=== PATIENT | male | born 2000 | race Hispanic/Latino ===

== ENCOUNTER 2023-05-09 00:27 | Emergency (ER) | payer SELFPAY ==
--- OUTSIDE RECORDS SUMMARY | 2023-05-09 00:32 | XMS REPORT | Continuity of Care Document ---
:2000 Author Organization [facility] t Address [address] [facility]. [address] [place] [address] Care Team Providers Name Role Phone Unavailable Unavailable Unavailable Problems This patient has no known problems. Allergies, Adverse Reactions, Alerts This patient has no known allergies or adverse reactions. Medications This patient has no known medications. Procedures This patient has no known procedures. Results Test Description Test Time Test Comments Results Result Comments Source GONORRHEA, NAAT, URINE 2021-10-07 19:09:02 Test Item Value Reference Range Interpretation Comme nts GONORRHEA, NAAT NEGATIVE NEGATIVE IMPORTA NT NOTICE: SEE ANNOUNCEMENT AT (test code = [email or web address] Note: 78988) Assay methodolo gy is nucleic acid amplification by transcriptio n mediated amplification (TMA) utilizing the A ptima Combo 2 Assay. CHLAMYDIA, NAAT, [id number] 19:09:02 Test Item Value Reference Range Interpretation Comments CHLAMYDIA, NAAT NEGATIVE NEGATIVE IMPORTA NT NOTICE: SEE (test code = [place] [address]) [email or web address] Note: Assay methodology is nucleic acid amplification b y price analyst m ediated amplification ( TMA) utilizing the A ptima Combo 2 Assay. UNLESS OTHERWISE INDICATED, ALL TESTING PERFORMED [facility] PATHOLOGY [facility] [address] [place] [address] LACEY BARR DIRECTOR: Marychuy ROGERSIA NUMBER [id number] CAP ACCREDITATION N O. [id number] HIV 1/2 4TH GEN, RFLX [id number] 04:41:54 Test Item Value Reference Range Interpretation Comments HIV 1/2 4TH GEN, RFLX CONF (test NON-REACTIVE NON-REACTIVE code = 3514) HEPATITIS PANEL, [id number] 04:41:54 Test Item Value Reference Range Interpretation Comments HEPATITIS A IgM (test NON-REACTIVE NON-REACTIVE code = 77208) HEPATITIS B CORE IgM NON-REACTIVE NON-REACTIVE (test code = 4644) HEPATITIS B SURF AG NON-REACTIVE NON-REACTIVE (test code = 2739) HEPATITIS C ANTIBODY NON-REACTIVE NON-REACTIVE (test code = 4675) INTERPRETATION (NOTE) Hepatitis A HEPATITIS A: (test code sero logy shows no = 2552) evidence of acu te hepatitis A. INTERPRETATION (NOTE) Hepatitis B HEPATITIS B: (test code sero logy shows no = 20777) evidence of acu te hepatitis B and no indication of exposure to hepatitis B vir us in the previous mai eight months. INTERPRETATION (NOTE) Hepatitis C HEPATITIS C: (test code sero logy shows no = 03676) evidence of exposure to hepatitisC viru s at this time. I t can take up to 12 months after exposure tothe hepatitis C vir us for antibodies to become detectab le in the blood in certain patient s.
--- NOTE | 2023-05-09 00:42 | EDPHYS ---
Physician Documentation [facility] Name: Jose Glez Age: 22 yrs Sex: Male : 2000 Arrival Date: 05/09/2023 Time: 00:27 Bed Treatment Private MD: ED Physician Sudhakar Gresham HPI: 05/09 00:34 This 22 yrs old Male presents to ER via Unassigned with complaints of Sore sp4 Throat, Fever, Nausea. 01:00 22-year-old male presents with a cute onset of sore throat starting 5 days sp4 ago. Patient states there is bilateral throat pain pain on swallowing associated with subjective fever chills and nausea. Ibuprofen temporarily relieves sore throat. No known drug allergies,. Historical: - Allergies: 00:47 No Known Allergies; kb3 - Home Meds: 00:47 None [Active]; kb3 - PMHx: 00:47 None; kb3 - PSHx: 00:47 None; kb3 - Immunization history:: Adult Immunizations up to date, Last tetanus immunization: < 10 years ago. - Social history:: Smoking status: Patient denies any tobacco usage or history of. Patient uses alcohol, occasionally. Patient/guardian denies using street drugs. - Family history:: not pertinent. ROS: 01:00 Constitutional: Negative for and weight loss, positive subjective fever and chills sp4 Eyes: Negative for injury, pain, redness, and discharge, ENT: Negative for injury, positive sore throat, positive pain on swallowing 01:00 All other systems are negative, Exam: 01:00 Constitutional: This is a well developed, well nourished patient who is awake, alert, sp4 and in no acute distress. Head/Face: Normocephalic, atraumatic. Eyes: Pupils equal round and reactive to light, extra-ocular motions intact. Lids and lashes normal. Conjunctiva and sclera are not injected. Cornea within normal limits. Periorbital areas with no swelling, redness, or edema. ENT: Nares patent. No nasal discharge, no septal abnormalities noted. Tympanic membranes are normal and external auditory canals are clear. Posterior pharyngitis posterior pharyngeal erythema bilateral tonsillar exudates. Neck: Trachea midline, no thyromegaly or masses palpated, and no cervical lymphadenopathy. Supple, full range of motion without nuchal rigidity, or vertebral point tenderness. Chest/axilla: Normal chest wall appearance and motion. Nontender with no deformity. No lesions are appreciated. Cardiovascular: Regular rate and rhythm with a normal S1 and S2. No gallops, murmurs, or rubs. Normal PMI, no JVD. No pulse deficits. Respiratory: Lungs have equal breath sounds bilaterally, clear to auscultation and percussion. No rales, rhonchi or wheezes noted. No increased work of breathing, no retractions or nasal flaring. Abdomen/GI: Soft, non-tender, with normal bowel sounds. No distension or tympany. No guarding or rebound. No evidence of tenderness throughout. Back: No spinal tenderness. No costovertebral tenderness. Skin: Warm, dry with normal turgor. Normal color with no rashes, no lesions, and no evidence of cellulitis. MS/ Extremity: Pulses equal, no cyanosis. Neurovascular intact. Full, normal range of motion. Neuro: Awake and alert, GCS 15, oriented to person, place, time, and situation. Cranial nerves II-XII grossly intact. Motor strength 5/5 in all extremities. Sensory grossly intact. Psych: Awake, alert, with orientation to person, place and time. Behavior, mood, and affect are within normal limits Vital Signs: 00:45 BP 133 / 82; Pulse 107; Resp 20; Temp 97.9; Pulse Ox 100% ; Weight 74.84 kg; Height 5 kb3 ft. 6 in. ; Pain 8/10; 00:45 Body Mass Index 26.63 (74.84 kg, 167.64 cm) kb3 00:45 Pain Scale: Adult kb3 MDM: 00:42 Patient medically screened. sp4 01:00 Differential diagnosis: apthous ulcer, bronchitis, cocksackie virus, echovirus sp4 infection, malika-aleman virus, gingivostomatitis, influenza. Data reviewed: vital signs, nurses notes, old medical records. Consideration of Admission/Observation Escalation of care including admission/observation considered. ED course: Patient has exudative tonsillitis by exam. Will treat with Toradol, and IM Rocephin. ED course: Stable for discharge home with p.o. cephalexin for 10 days.. Administered Medications: 01:07 Drug: Rocephin (cefTRIAXone) IM 1 grams IM once Route: IM; Site: left ventrogluteal; kb3 01:07 Follow up: Response: No adverse reaction kb3 01:07 Drug: Ketorolac IM 60 mg IM once Route: IM; Site: right ventrogluteal; kb3 01:07 Follow up: Response: No adverse reaction kb3 01:07 Drug: Promethazine PO 25 mg PO once Route: PO; kb3 01:07 Follow up: Response: No adverse reaction kb3 01:07 Drug: Acetaminophen-Codeine PO (300 mg-30 mg) 2 tabs PO once; RASS on ADMIN: Combtv4, kb3 Very Agttd3, Agttd2, Rstlss1, AlertClm0, Drwsy-1, Lt Sdtn-2, Mod Sdtn-3, Dp Sdtn-4, UnArsble-5 Route: PO; 01:07 Follow up: Response: No adverse reaction kb3 Disposition Summary: 05/09/23 00:42 Discharge Ordered Problem: new sp4 Symptoms: have improved sp4 Condition: Stable sp4 Diagnosis - Acute tonsillitis, unspecified sp4 - Acute exudative tonsillitis sp4 Followup: sp4 - With: Private Physician - When: 7 - 10 days - Reason: Recheck today's complaints Discharge Instructions: - Discharge Summary Sheet sp4 - Tonsillitis sp4 Forms: - Patient Portal Instructions sp4 Prescriptions: - naproxen 500 mg Oral tablet - take 1 tablet by ORAL route every 12 hours as needed for pain; 30 tablet; sp4 Refills: 0, Product Selection Permitted - Cephalexin 500 mg Oral Capsule - take 1 capsule by ORAL route every 12 hours for 10 days; 20 capsule; Refills: sp4 0, Product Selection Permitted Signatures: Caterina Bautista RN RN kb3 Sudhakar Gresham MD MD sp4 Corrections: (The following items were deleted from the chart) 00:47 00:47 Allergies: Unable to obtain; kb3 kb3
[2023-05-09] MEDS ORDERED: PROMETHAZINE 25 MG TABLET ONE (01:05)
[2023-05-09] MEDS ORDERED: LIDOCAINE 1% MPF 2 ML AMPULE ONE (01:06)
[2023-05-09] MEDS ORDERED: CEFTRIAXONE 1000 MG/VIAL ONE (01:06)
[2023-05-09] MEDS ORDERED: KETOROLAC 30 MG/ML INJ ONE (01:06)
[2023-05-09] MEDS ORDERED: CODEINE 30MG/APAP 300MG TAB ONE (01:06)
--- NOTE | 2023-05-09 01:09 | ER ---
Nurse's Notes [facility] Name: Jose Glez Age: 22 yrs Sex: Male : 2000 Arrival Date: 05/09/2023 Time: 00:27 Bed Treatment Private MD: Diagnosis: Acute tonsillitis, unspecified;Acute exudative tonsillitis Presentation: 05/09 00:45 Chief complaint: Patient states: sore throat and fever since . Tonsils are kb3 edematous with patchy exudate. Coronavirus screen: Vaccine status: Patient reports being unvaccinated. Client denies travel out of the [place] in the last 14 days. Ebola Screen: Patient negative for fever greater than or equal to 101.5 degrees Fahrenheit, and additional compatible Ebola Virus Disease symptoms Patient denies exposure to infectious person. Patient denies travel to an Ebola-affected area in the 21 days before illness onset. Initial Sepsis Screen: Does the patient meet any 2 criteria? No. Patient's initial sepsis screen is negative. Does the patient have a suspected source of infection? No. Patient's initial sepsis screen is negative. Risk Assessment: Do you want to hurt yourself or someone else? Patient reports no desire to harm self or others. Onset of symptoms was May 05, 2023. 00:45 Method Of Arrival: Ambulatory kb3 00:45 Acuity: LISA 4 kb3 Triage Assessment: 00:47 General: Appears in no apparent distress. uncomfortable, Behavior is calm, cooperative. kb3 Pain: Complains of pain in uvula, left aspect of posterior pharynx and right aspect of posterior pharynx Pain does not radiate. Pain currently is 8 out of 10 on a pain scale. Quality of pain is described as sharp, stinging. EENT: Throat is reddened has patchy exudate has enlarged tonsils bilaterally. Historical: - Allergies: 00:47 No Known Allergies; kb3 - Home Meds: 00:47 None [Active]; kb3 - PMHx: 00:47 None; kb3 - PSHx: 00:47 None; kb3 - Immunization history:: Adult Immunizations up to date, Last tetanus immunization: < 10 years ago. - Social history:: Smoking status: Patient denies any tobacco usage or history of. Patient uses alcohol, occasionally. Patient/guardian denies using street drugs. - Family history:: not pertinent. Screenin:48 [facility] ED Fall Risk Assessment (Adult) History of falling in the last 3 months, kb3 including since admission No falls in past 3 months (0 pts) Confusion or Disorientation No (0 pts) Intoxicated or Sedated No (0 pts) Impaired Gait No (0 pts) Mobility Assist Device Used No (0 pt) Altered Elimination No (0 pt) Score/Fall Risk Level 0 - 2 = Low Risk Oriented to surroundings, Maintained a safe environment, Educated pt \T\ family on fall prevention, incl call for assistance when getting out of bed. Abuse screen: Denies threats or abuse. Denies injuries from another. Nutritional screening: No deficits noted. Tuberculosis screening: No symptoms or risk factors identified. Assessment: 00:48 General: See triage notes. Respiratory: Airway is patent Respiratory effort is even, kb3 unlabored, Breath sounds are clear. Vital Signs: 00:45 BP 133 / 82; Pulse 107; Resp 20; Temp 97.9; Pulse Ox 100% ; Weight 74.84 kg; Height 5 kb3 ft. 6 in. ; Pain 8/10; 00:45 Body Mass Index 26.63 (74.84 kg, 167.64 cm) kb3 00:45 Pain Scale: Adult kb3 ED Course: 00:30 Patient arrived in ED. es 00:34 Suraj Wallace PA is PHCP. cp 00:34 Sudhakar Gresham MD is Attending Physician. cp 00:47 Triage completed. kb3 00:47 Arm band placed on right wrist. kb3 00:48 Patient has correct armband on for positive identification. Bed in low position. Call kb3 light in reach. Provided Education on: Plan of care. 00:48 No provider procedures requiring assistance completed. Patient did not have IV access kb3 during this emergency room visit. Administered Medications: 01:07 Drug: Rocephin (cefTRIAXone) IM 1 grams IM once Route: IM; Site: left ventrogluteal; kb3 01:07 Follow up: Response: No adverse reaction kb3 01:07 Drug: Ketorolac IM 60 mg IM once Route: IM; Site: right ventrogluteal; kb3 01:07 Follow up: Response: No adverse reaction kb3 01:07 Drug: Promethazine PO 25 mg PO once Route: PO; kb3 01:07 Follow up: Response: No adverse reaction kb3 01:07 Drug: Acetaminophen-Codeine PO (300 mg-30 mg) 2 tabs PO once; RASS on ADMIN: Combtv4, kb3 Very Agttd3, Agttd2, Rstlss1, AlertClm0, Drwsy-1, Lt Sdtn-2, Mod Sdtn-3, Dp Sdtn-4, UnArsble-5 Route: PO; 01:07 Follow up: Response: No adverse reaction kb3 Medication: 00:48 VIS not applicable for this client. kb3 Outcome: 00:42 Discharge ordered by . sp4 01:08 Discharged to home ambulatory, kb3 01:08 Condition: stable 01:08 Discharge instructions given to patient, Instructed on discharge instructions, follow up and referral plans. medication usage, Demonstrated understanding of instructions, follow-up care, medications, Prescriptions given X 2, 01:08 Patient left the ED. kb3 Signatures: Selma Juan Corey, PA PA cp Bradberry, Kelly, TRENT RN kb3 Sudhakar Gresham MD MD sp4 Corrections: (The following items were deleted from the chart) 00:47 00:47 Allergies: Unable to obtain; kb3 kb3
[2023-05-09 01:57] VITALS: BP 133/82; TEMP 97.9; O2SAT 100
== END 2023-05-09 01:08 | disposition home or self-care (01) ==
LOC: ER 00:27
DX: J03.90 Acute tonsillitis, unspecified (principal)
CPT/HCPCS: 96372; 99284; J0696; Q0169

== ENCOUNTER 2023-05-11 00:25 | Emergency (ER) | payer SELFPAY ==
--- NOTE | 2023-05-11 00:59 | ER ---
Nurse's Notes [facility] Name: Jose Glez Age: 22 yrs Sex: Male : 2000 Arrival Date: 05/11/2023 Time: 00:25 Bed 6 Private MD: Diagnosis: Acute tonsillitis, unspecified;Unspecified sexually transmitted disease Presentation: 05/11 00:29 Chief complaint: Patient states: sore throat pain of 6 with swelling,onset 6 days, pf1 worse today, not able to swallow salvia or eat. Also C/O penis is swollen,onset Tuesday AM. Patient stated had irritation to penis for 3 days prior to the penis swelling. Patient stated was seen here on 05/09, diagnosed with Tonsillitis, was prescribed Keflex and Naproxen. 00:29 Coronavirus screen: Vaccine status: Patient reports being unvaccinated. Client denies pf1 travel out of the [place] in the last 14 days. Client presents with at least one sign or symptom that may indicate coronavirus-19. Ebola Screen: Patient negative for fever greater than or equal to 101.5 degrees Fahrenheit, and additional compatible Ebola Virus Disease symptoms. Initial Sepsis Screen: Does the patient meet any 2 criteria? HR > 90 bpm. No. Patient's initial sepsis screen is negative. Does the patient have a suspected source of infection? Yes: Other: sore throat. Risk Assessment: Do you want to hurt yourself or someone else? Patient reports no desire to harm self or others. 00:29 Method Of Arrival: Ambulatory pf1 00:29 Acuity: LISA 4 pf1 01:06 Onset of symptoms was May 11, 2023. rv Historical: - Allergies: 00:49 No Known Allergies; pf1 - PMHx: 00:49 None; pf1 - PSHx: 00:49 None; pf1 - Immunization history:: Adult Immunizations up to date, Client reports having NOT received the Covid vaccine. Last tetanus immunization: < 10 years ago Flu vaccine is not up to date. - Social history:: Smoking status: Patient denies any tobacco usage or history of. Patient uses alcohol, occasionally. Patient/guardian denies using street drugs. Screenin:05 [facility] ED Fall Risk Assessment (Adult) History of falling in the last 3 months, rv including since admission No falls in past 3 months (0 pts) Score/Fall Risk Level 0 - 2 = Low Risk Oriented to surroundings, Maintained a safe environment, Educated pt \T\ family on fall prevention, incl call for assistance when getting out of bed, Assessed \T\ reinforced patient's understanding of fall precautions, Provided non-skid footwear, Hourly rounding (assess needs \T\ fall precautionary measures) done, Used ambulatory aids as needed (educated on \T\ assisted with), Used gait belt as appropriate. Abuse screen: Denies threats or abuse. Denies injuries from another. Nutritional screening: No deficits noted. Tuberculosis screening: No symptoms or risk factors identified. Assessment: 01:04 General: Appears comfortable, Behavior is calm, cooperative. Pain: Complains of pain in rv head of penis. Neuro: Level of Consciousness is awake, alert, obeys commands, Oriented to person, place, time, situation. Cardiovascular: Capillary refill < 3 seconds Patient's skin is warm and dry. Respiratory: Airway is patent. : Reports pain. Derm: Skin is intact. Vital Signs: 00:29 BP 143 / 80; Pulse 125; Resp 18; Temp 98.6; Pulse Ox 100% on R/A; Weight 74.84 kg; pf1 Height 5 ft. 5 in. ; Pain 6/10; 00:29 Body Mass Index 27.46 (74.84 kg, 165.1 cm) pf1 00:29 Pain Scale: Adult pf1 [place] Coma Score: 01:05 Eye Response: spontaneous(4). Motor Response: obeys commands(6). Verbal Response: rv oriented(5). Total: 15. ED Course: 00:28 Patient arrived in ED. mr 00:31 Suraj Hess MD is Attending Physician. keyanna 00:33 Armani Mitchell, TRENT is Primary Nurse. bp 00:49 Triage completed. pf1 00:57 Chip Wagner MD is Referral Physician. keyanna 01:05 Patient has correct armband on for positive identification. Provided Education on: std. rv 01:05 Arm band placed on right wrist. rv 01:05 No provider procedures requiring assistance completed. Patient did not have IV access rv during this emergency room visit. Administered Medications: 01:02 Drug: penicillin G Benzathine IM 1.2 million units IM once Route: IM; Site: right rv gluteus; 01:30 Follow up: Response: No adverse reaction rv 01:03 Drug: Doxycycline PO 200 mg PO once Route: PO; rv 01:30 Follow up: Response: No adverse reaction rv 01:03 Drug: AZITHromycin PO 1 grams PO once Route: PO; rv 01:30 Follow up: Response: No adverse reaction rv Medication: 01:05 VIS not applicable for this client. rv Outcome: 00:58 Discharge ordered by . keyanna 01:30 Discharged to home ambulatory, with family, rv 01:30 Condition: good 01:30 Discharge instructions given to patient, Instructed on discharge instructions, follow up and referral plans. medication usage, Demonstrated understanding of instructions, follow-up care, medications, Prescriptions given X 1, 01:31 Patient left the ED. rv Signatures: Suraj Hess MD MD cha Rivera, Mary, Oni Bunn mr Armani Mitchell, RN RN bp Vamsi Ramirez RN RN rv Deja Law RN RN pf1 Corrections: (The following items were deleted from the chart) 00:49 00:39 Chief complaint: Patient states: sore throat pain of 6 with swelling,onset 6 pf1 days, worse today, not able to swallow salvia or eat. Also C/O penis is swollen,onset Tuesday AM. Patient stated pf1
--- NOTE | 2023-05-11 00:59 | EDPHYS ---
Physician Documentation [facility] Name: Jose Glez Age: 22 yrs Sex: Male : 2000 Arrival Date: 05/11/2023 Time: 00:25 Bed 6 Private MD: ED Suraj Ashraf HPI: 05/11 00:47 This 22 yrs old Male presents to ER via Unassigned with complaints of Penile keyanna Problem. 00:47 The patient presents with swelling, tenderness, that is moderate, of the head of penis keyanna and shaft of penis. Historical: - Allergies: 00:49 No Known Allergies; pf1 - PMHx: 00:49 None; pf1 - PSHx: 00:49 None; pf1 - Immunization history:: Adult Immunizations up to date, Client reports having NOT received the Covid vaccine. Last tetanus immunization: < 10 years ago Flu vaccine is not up to date. - Social history:: Smoking status: Patient denies any tobacco usage or history of. Patient uses alcohol, occasionally. Patient/guardian denies using street drugs. ROS: 00:51 Constitutional: Negative for fever, chills, and weight loss, Eyes: Negative for injury, keyanna pain, redness, and discharge, Neck: Negative for injury, pain, and swelling, Cardiovascular: Negative for chest pain, palpitations, and edema, Respiratory: Negative for shortness of breath, cough, wheezing, and pleuritic chest pain, Abdomen/GI: Negative for abdominal pain, nausea, vomiting, diarrhea, and constipation, Back: Negative for injury and pain, MS/Extremity: Negative for injury and deformity, Skin: Negative for injury, rash, and discoloration, Neuro: Negative for headache, weakness, numbness, tingling, and seizure, Psych: Negative for depression, anxiety, suicide ideation, homicidal ideation, and hallucinations, Allergy/Immunology: Negative for hives, rash, and allergies, Endocrine: Negative for neck swelling, polydipsia, polyuria, polyphagia, and marked weight changes, 00:51 ENT: Positive for sinus congestion, sore throat, 00:51 : Positive for penile pain, of the head of penis and shaft of penis, Exam: 00:51 Constitutional: This is a well developed, well nourished patient who is awake, alert, keyanna and in no acute distress. Head/Face: Normocephalic, atraumatic. Eyes: Pupils equal round and reactive to light, extra-ocular motions intact. Lids and lashes normal. Conjunctiva and sclera are non-icteric and not injected. Cornea within normal limits. Periorbital areas with no swelling, redness, or edema. Neck: Trachea midline, no thyromegaly or masses palpated, and no cervical lymphadenopathy. Supple, full range of motion without nuchal rigidity, or vertebral point tenderness. No Meningismus. Chest/axilla: Normal chest wall appearance and motion. Nontender with no deformity. No lesions are appreciated. Cardiovascular: Regular rate and rhythm with a normal S1 and S2. No gallops, murmurs, or rubs. Normal PMI, no JVD. No pulse deficits. Respiratory: Lungs have equal breath sounds bilaterally, clear to auscultation and percussion. No rales, rhonchi or wheezes noted. No increased work of breathing, no retractions or nasal flaring. Abdomen/GI: Soft, non-tender, with normal bowel sounds. No distension or tympany. No guarding or rebound. No evidence of tenderness throughout. Back: No spinal tenderness. No costovertebral tenderness. Full range of motion. Skin: Warm, dry with normal turgor. Normal color with no rashes, no lesions, and no evidence of cellulitis. MS/ Extremity: Pulses equal, no cyanosis. Neurovascular intact. Full, normal range of motion. Neuro: Awake and alert, GCS 15, oriented to person, place, time, and situation. Cranial nerves II-XII grossly intact. Motor strength 5/5 in all extremities. Sensory grossly intact. Cerebellar exam normal. Normal gait. Psych: Awake, alert, with orientation to person, place and time. Behavior, mood, and affect are within normal limits. 00:51 ENT: Posterior pharynx: Airway: normal, no evidence of obstruction, Tonsils: bilaterally enlarged, with erythema, with exudate, with ulcerations, Uvula: midline, erythema, swelling, that is mild, erythema, that is mild, exudate, is not appreciated, peritonsillar mass, is not appreciated, pooling of secretions, is not appreciated, Vital Signs: 00:29 BP 143 / 80; Pulse 125; Resp 18; Temp 98.6; Pulse Ox 100% on R/A; Weight 74.84 kg; pf1 Height 5 ft. 5 in. ; Pain 6/10; 00:29 Body Mass Index 27.46 (74.84 kg, 165.1 cm) pf1 00:29 Pain Scale: Adult pf1 [place] Coma Score: 01:05 Eye Response: spontaneous(4). Motor Response: obeys commands(6). Verbal Response: rv oriented(5). Total: 15. MDM: 00:31 Patient medically screened. keyanna 00:55 Differential diagnosis: urethritis. Data reviewed: vital signs, nurses notes. [facility] Consideration of Admission/Observation Escalation of care including admission/observation considered. I considered the following discharge prescriptions or medication management in the emergency department Medications were administered in the Emergency Department. See MAR. Test considered but Not performed: Labs: no labs. Care significantly affected by the following chronic conditions: none. Administered Medications: 01:02 Drug: penicillin G Benzathine IM 1.2 million units IM once Route: IM; Site: right rv gluteus; 01:30 Follow up: Response: No adverse reaction rv 01:03 Drug: Doxycycline PO 200 mg PO once Route: PO; rv 01:30 Follow up: Response: No adverse reaction rv 01:03 Drug: AZITHromycin PO 1 grams PO once Route: PO; rv 01:30 Follow up: Response: No adverse reaction rv Disposition Summary: 05/11/23 00:58 Discharge Ordered Notes: Location: Home [facility] Problem: new [facility] Symptoms: have improved keyanna Condition: Stable keyanna Diagnosis - Acute tonsillitis, unspecified keyanna - Unspecified sexually transmitted disease keyanna Followup: keyanna - With: Private Physician - When: 2 - 3 days - Reason: Recheck today's complaints, Continuance of care, Re-evaluation by your physician Followup: keyanna - With: Chip Wagner MD - When: 2 - 3 days - Reason: Recheck today's complaints, Re-evaluation by your physician Discharge Instructions: - Discharge Summary Sheet [facility] - Tonsillitis [facility] - Tonsillitis, [id number]-[id number] [facility] - Preventing Sexually Transmitted Infections, Adult [facility] Forms: - Medication Reconciliation Form [facility] - Thank You Letter [facility] - Antibiotic Education [facility] - Prescription Opioid Use [facility] - Patient Portal Instructions [facility] - Leadership Thank You Letter [facility] - Work release form pf1 Prescriptions: - Doxycycline Hyclate 100 mg Oral tablet - take 1 tablet ORAL route every 12 hours; 28 tablet; Refills: 0, Product keyanna Selection Permitted Signatures: Suraj Hess MD MD cha Vicente, Ronaldo, RN RN Deja Carlson RN RN pf1
[2023-05-11] MEDS ORDERED: AZITHROMYCIN 250 MG TAB ONE (01:05)
[2023-05-11] MEDS ORDERED: DOXYCYCLINE 100 MG CAP PO ONE (01:05)
[2023-05-11] MEDS ORDERED: PEN G BENZ LA 1.2MU/2ML SYRINGE IM ONE (01:05)
[2023-05-11 03:00] VITALS: BP 143/80; TEMP 98.6; O2SAT 100
--- OUTSIDE RECORDS SUMMARY | 2023-05-11 07:23 | XMS REPORT | Continuity of Care Document ---
:2000 Author Organization [facility] t Address [address] [place] [address] Care Team Providers Name Role Phone Unavailable [...] NOTICE: SEE ANNOUNCEMENT AT (test code = [email or web address] Note: 11535) Assay methodolo gy is nucleic acid amplification by transcriptio n mediated amplification (TMA) utilizing the A ptima Combo 2 Assay. CHLAMYDIA, NAAT, [id number] 19:09:02 Test Item Value Reference Range Interpretation Comments CHLAMYDIA, NAAT NEGATIVE NEGATIVE IMPORTA NT NOTICE: SEE (test code = [place] [address]) [email or web address] Note: Assay methodology is nucleic acid amplification b y fruit coordinator m ediated amplification ( TMA) utilizing the A ptima Combo 2 Assay. UNLESS OTHERWISE INDICATED, ALL TESTING PERFORMED [facility] [address] [place] [address] LACEY BARR DIRECTOR: KONSTANTIN NUNEZ M.D. CLIA NUMBER [id number] CAP ACCREDITATION N O. [id number] HIV 1/2 4TH GEN, RFLX [id number] 04:41:54 Test Item Value Reference Range Interpretation Comments HIV 1/2 4TH GEN, RFLX CONF (test NON-REACTIVE NON-REACTIVE code = 3514) HEPATITIS PANEL, [id number] 04:41:54 Test Item Value Reference Range Interpretation Comments HEPATITIS A IgM (test NON-REACTIVE NON-REACTIVE code = 25000) HEPATITIS B CORE IgM NON-REACTIVE NON-REACTIVE (test code = 4644) HEPATITIS B SURF AG NON-REACTIVE NON-REACTIVE (test code = 2739) HEPATITIS C ANTIBODY NON-REACTIVE NON-REACTIVE (test code = 4675) INTERPRETATION (NOTE) Hepatitis A HEPATITIS A: (test code sero logy shows no = 2552) evidence of acu te hepatitis A. INTERPRETATION (NOTE) Hepatitis B HEPATITIS B: (test code sero logy shows no = 08603) evidence of acu te hepatitis B and no indication of exposure to hepatitis B vir us in the previous mai eight months. INTERPRETATION (NOTE) Hepatitis C HEPATITIS C: (test code sero logy shows no = 83037) evidence of exposure to hepatitisC viru s at this time. I t can take up to 12 months after exposure tothe hepatitis C vir us for antibodies to become detectab le in the blood in certain patient s.
== END 2023-05-11 01:31 | disposition home or self-care (01) ==
LOC: ER 00:25
DX: A64 Unspecified sexually transmitted disease (principal); J03.90 Acute tonsillitis, unspecified
CPT/HCPCS: J0561